=== PATIENT | female | born 1960 | race Caucasian/White ===

== ENCOUNTER 2017-03-25 15:37 | Emergency (ER) | payer OTHER, MEDICARE ==
[~2017-03-25] VITALS: Ht 168.9 cm; Wt 79.1 kg
[~2017-03-25 15:37] MED LIST: ATEN25TA PO; ATOR20TA PO; Aspirin PO; CITA40TA13 PO; CLOP75TA3 PO; GABA-504 PO; HYDR-3481 PO; MTH10T PO; TIZA2TAB3 PO
[2017-03-25 16:16] VITALS: BP 235/115; PULSE 101; RESP 18; O2SAT 97
[2017-03-25 16:30] VITALS: BP 196/93; PULSE 99; RESP 18; O2SAT 97
--- NOTE | 2017-03-25 16:42 | ED.REPORT ---
HPI-Back Pain 40 and Over Date of Service Mar 25, 2017 ED Provider: Hua Moran MD History of Present Illness: left side back pain started at 1 am this morning. Has been having back pain for 2 weeks but worse this am. Sees Yvonne sandoval. was taking vicodin every 3 hours. sent here no nausea or vomiting. denies control pills. Has been waking occasionally with the pain 04/28 Nursing Notes Stated Complaint: BACK PAIN/SENT FROM URGENT CARE Chief Complaint: Back Pain or Injury Nursing Notes Reviewed: Yes Allergies: Coded Allergies: morphine (Verified Allergy, Severe, 01/24/15) IV,ok; oral gives her migraines/nausea clindamycin (Verified Allergy, Intermediate, 01/24/15) itchy red rash Scheduled ([Aspirin]) 81 MG TAB.CHEW 162 MG PO DAILY Atenolol (Atenolol) 25 Mg Tablet 25 MG PO DAILY Atorvastatin (Lipitor) 20 Mg Tablet 40 MG PO HS Citalopram (Citalopram) 40 Mg Tablet 40 MG PO DAILY Clopidogrel Bisulfate (Plavix) 75 Mg Tablet 75 MG PO DAILY Gabapentin (Gabapentin) 400 Mg Capsule 400 MG PO HS Methadone (Methadone) 10 Mg Tab 5 MG PO BID Tizanidine (Tizanidine) 2 Mg Tablet 2 MG PO HS Scheduled PRN Hydrocodone/Acetaminophen (Vicodin Es 7.5-300 mg Tablet) 1 Each Tablet 1 EACH PO Q6 PRN PRN For Pain General Time Seen by MD: 16:28 Chief Complaint Back pain Hx Obtained From: Patient Sudden in Onset?: No Caused by: Spontaneous/no mechanism Past Medical History Past Medical History CVA June 2015 after neck surgery [place] July 2014 Reports: Stroke Past Surgical History Lamenectomy C4-C5 to treat L side numbness Two prior back surgeries Smoking History Current Every Day Smoker (10 cig a day 30 years) Social History Alcohol Use: 3-5 per day Drug Use: Denies drug use Other Social History: 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 Ambulatory Status Independent Review of Systems Basic Review of Systems Eyes: Vision NL, No discharge Hematologic: No bleeding, No bruising Psychiatric: Normal thought content Physical Exam Initial Vital Signs Vital Signs (First) Date Time Temp Pulse Resp B/P Pulse Ox O2 Delivery O2 Flow Rate FiO2 03/25/17 16:16 37.4 101 18 235/115 97 Room Air Initial VS: Reviewed, Vital signs abnormal Head / Eyes: Atraumatic, Normocephalic, PERRL ENT: Mucous membranes moist, Conjunctiva normal, No scleral icterus Neck: Supple, Non-tender, Full range of motion Lymphatic: No lymphadenopathy Extremities: Vascular intact, Neuro intact, No swelling, No tenderness Skin: Warm, Dry, No cyanosis Psychiatric: Mood/affect normal, Behavior normal, Normal thought content General/Constitutional: Awake, Alert Distress / Hydration: Positive: Distress moderate patient is writhing in pain on entrance into the room. has good response to dilaulid Respiratory / Chest: Atraumatic, Breath sounds NL, Breath sounds = bilat, No respiratory distress Cardiovascular: Heart rate NL, Regular rhythm, Heart sounds NL, No gallop, No murmurs Abdomen: Atraumatic, Soft, Non-tender, McBurney's non-tender Flank / Spine / Paraspinal: Positive: Thorac paraspinal tend... (Mid) Neurologic: Oriented X3, Speech NL, No motor deficits Interpretation & Diagnostics Interpretation & Diagnostics: normal EKG normnal chest xray Lab Results Interpretation Result Diagram: 03/25/17 1653 03/25/17 1653 Test 03/25/17 16:53 03/25/17 17:50 03/25/17 18:08 White Blood Count 14.4th/mm3 (3.8-10.1) Red Blood Count 4.27mil/mm3 (3.90-5.20) Hemoglobin 13.7g/dL (12.0-15.6) Hematocrit 40.0% (35.0-46.0) Mean Corpuscular Volume 93.7fL (81-100) Mean Corpuscular Hemoglobin 32.1pg (27.0-35.0) Mean Corpuscular Hemoglobin Concent 34.3% (32.0-37.0) Red Cell Distribution Width 12.5% (12.3-15.4) Platelet Count 261bil/L (150-400) Neutrophils (%) (Auto) 73.9% (40-74) Lymphocytes (%) (Auto) 17.8% (14-46) Monocytes (%) (Auto) 6.3% (4-12) Eosinophils (%) (Auto) 1.3% (0-5) Basophils (%) (Auto) 0.4% (0-3) Sodium Level 140mEq/L (134-144) Potassium Level 4.3mEq/L (3.5-5.2) Chloride Level 97mEq/L (97-108) Carbon Dioxide Level 24mmol/L (18-29) Blood Urea Nitrogen 15mg/dL (6-24) Creatinine 0.65mg/dL (0.57-1.00) Estimat Glomerular Filtration Rate 135mL/min (>59) Glucose Level 103mg/dL (60-99) Calcium Level 10.0mg/dL (8.5-10.1) Magnesium Level 1.9mg/dL (1.6-2.6) Total Bilirubin 0.2mg/dL (0.0-1.2) Aspartate Amino Transf (AST/SGOT) 27U/L (0-50) Alanine Aminotransferase (ALT/SGPT) 25U/L (0-32) Alkaline Phosphatase 98U/L (25-150) Troponin T < 0.010ug/L (0.0-0.011) Total Protein 7.9g/dL (6.4-8.4) Albumin 4.5g/dL (3.4-5.0) Hold Urine Received (Received) Urine Color Yellow (YELLOW) Urine Appearance Clear (CLEAR,HAZY) Urine pH 5.5 (5.0-8.0) Urine Specific Alden 1.015 (1.003-1.035) Urine Protein Negativemg/dL (NEG,TRACE) Urine Glucose (UA) Negativemg/dL (NEGATIVE) Urine Ketones Negativemg/dL (NEGATIVE) Urine Occult Blood Large (NEGATIVE) Urine Nitrite Negative (NEGATIVE) Urine Bilirubin Negative (NEGATIVE) Urine Urobilinogen Normalmg/dL (NORMAL) Urine Leukocyte Esterase Negative (NEGATIVE) Urine RBC 3-10/hpf (0-2) Urine WBC 0-5/hpf (0-5) Urine Epithelial Cells Moderate/hpf (NONE-MOD) Urine Crystals None seen (NONE SEEN) Urine Bacteria Few/hpf (NONE-FEW) Urine Hyaline Casts None/lpf (NONE) Urine Granular Casts None seen (NONE SEEN) Urine Waxy Casts None seen (NONE SEEN) Urine Red Blood Cell Casts None seen (NONE SEEN) Urine White Blood Cell Casts None seen (NONE SEEN) Urine Mucus None seen (None Seen) Urine Trichomonas None seen (NONE SEEN) Urine Yeast None (NONE SEEN) Urinalysis Comment None Urine Culture Reflexed Not indicated X-Ray Chest Interpretation Chest Xray Interpretation: ROCEDURE: CT ANG CHEST/ABD W/WO CONTRAST ([id number]) INDICATIONS: back pain. htn, r/o dissection TECHNIQUE: Precontrast 5 mm thick sections acquired from the lung apices to the iliac crests. After the administration of intravenous contrast, 3 mm thick sections again acquired from the lung apices to the iliac crests. 3-dimensional maximum intensity projection (MIP) oblique sagittal and coronal reformats were then acquired, and/or 3-dimensional volume rendering reformats. For radiation dose reduction, the following was used: automated exposure control. COMPARISON: None. FINDINGS: Image quality: Excellent. AORTA: Radiographically normal thoracic and abdominal aorta. CHEST: Lungs and pleura: There is a very low-density 12 mm area in the superior right upper lobe on (se 6 im 20). Mild emphysema. Mediastinum: Heart size is normal. No pericardial effusion. No mediastinal or hilar adenopathy by size criteria. Central pulmonary arteries are normal in size. Esophagus is normal in caliber. No hiatal hernias. Bones and chest wall: No axillary adenopathy by size criteria. Thyroid gland contains a partially calcified 2 cm right thyroid nodule. No suspicious bony lesions. No vertebral body compression fractures. ABDOMEN: Vasculature: Celiac trunk and mesenteric arteries are patent. Dual bilateral renal arteries are also patent. Solid organs: Liver and spleen are normal in size. Gallbladder is normal. Biliary system is non dilated. Pancreas enhances normally. No adrenal nodules. Both kidneys are normal in size and enhancement, without hydronephrosis. Peritoneum and bowel: No free fluid or air. Bowel loops are normal in caliber and wall thickness. Nodes and vessels: No retroperitoneal or mesenteric adenopathy by size criteria. Inferior vena cava is normal in morphology. Bones: No suspicious bony lesions. No vertebral body compression fractures. Miscellaneous: No ventral hernias. IMPRESSION: 1. Normal thoracic and abdominal aorta. No evidence of dissection. 2. There is a 2 cm right thyroid nodule. Recommend ultrasound on a nonemergent basis. 3. There is a 12 mm very low-density area in the superior upper lobe of the right lung. Recommend followup as described below. Fleischner Society criteria for SUB-SOLID lung nodule followup. Solitary pure ground-glass nodules5 mm or lessNo followup needed. >5 mm3 mo follow-up CT to confirm persistence. Then annual CT for 3 years. Part-solid nodules3 mo follow-up CT to confirm persistence. If persistent with solid component <5 mm, annual CT for at least 3 years. If solid component is 5 mm or more, biopsy or surgical resection. Consider PET-CT for lesions > 10 mm. Multiple sub-solid nodulesPure ground glass nodules [address] at 2 and 4 years. Pure ground glass nodules >5 mm without dominant lesion. [address] to confirm persistence, then annual followup CT for at least 3 years. Dominant nodule(s) with part-solid or solid component. [address] to confirm persistence. If persistent, consider biopsy or surgical resection, kathi if lesions have >5 mm solid component. Dictated by: Nikolas Ricks M.D. on 03/25/2017 at 18:38 Approved by: Nikolas Ricks M.D. on 03/25/2017 at 18:48 Re-Eval/Medical Decision Med Decision/Clinical Course CT does not show any dissection. Patient informed of thyroid nodule and 12 mm low density area in the superior upper lobe of the right lung. Patient with good pain control with dilaulid and tordaol. BP does come down with pain control. No sign of dissection or pneumonia. Discharge & Departure Impression: Primary Impression: Low back pain Chronicity: chronic Back pain laterality: unspecified Sciatica presence: unspecified whether sciatica present Qualified Code: M54.5 - Low back pain Additional Impressions: Temporary high blood pressure Hypertension Hypertension type: unspecified secondary hypertension Qualified Code: I15.9 - Secondary hypertension, unspecified Disposition: Home Patient Instructions: Low Back Strain (ED) Additional Instructions: The CT does not show any sign of dissection. It does show a right thyroid nodule. This will need an ultrasound on an out patient basis. The CT also shows a 12 mm low density area in the upper lobe of the right lobe. Please discuss with Dr. Sandoval the best way to evualate this. You have had a great response to the toradol. You are being provided the pill version, ketorolac 10 mg up to 4 times a day for [address] Sandoval tomorrow. No sign of any heart issues, or pneumonia. Continue with your regular medication. Referrals: Yvonne Sandoval MD (PCP) EDSupervising Provider for APC: Hua Moran MD Attending Statement Attending attestation: I saw this patient in conjunction with Suyapa LIM. I agree with the workup , evaluation, treatment and disposition. Hua Moran MD copies to: Yvonne Sandoval MD, Beck O MD Mar 25, 2017 16:42 Suyapa Pineda Mar 25, 2017 17:19
[2017-03-25 16:56] LABS: BASOPHILS % (AUTO) 0.4 % (0-3); EOSINOPHILS % (AUTO) 1.3 % (0-5); MONOCYTES % (AUTO) 6.3 % (4-12); Mean Corpuscular Hemoglobin 32.1 pg (27.0-35.0); Mean Corpuscular Volume 93.7 fL (81-100); NEUTROPHILS % (AUTO) 73.9 % (40-74); Platelet Count 261 bil/L (150-400)
[2017-03-25 17:20] LABS: TROPONIN T < 0.010 ug/L (0.0-0.011)
[2017-03-25] MEDS ORDERED: Ondansetron 2 mg/mL 2 mL Inj IVPUSH ONE (17:25)
[2017-03-25] MEDS ORDERED: 0.9% Sodium Chloride 1,000 ML IV ONE (17:25)
[2017-03-25 17:30] LABS: Magnesium 1.9 mg/dL (1.6-2.6)
[2017-03-25] MEDS: HYDROmorphone 0.5 mg/0.5 mL iSecure Syringe IVPUSH PRN ×2 (17:47→18:15)
[2017-03-25 18:31] LABS: APPEARANCE,URINE CLEAR (CLEAR,HAZY); COLOR,URINE YELLOW (YELLOW); OCCULT BLOOD,URINE LARGE (NEGATIVE); PH,URINE 5.5 (5.0-8.0); UROBILINOGEN,URINE NORMAL (NORMAL)
--- NOTE | 2017-03-25 18:38 | DRSVH ---
PROCEDURE: X-RAY CHEST ONE VIEW, PORTABLE ([id number]) INDICATIONS: chest pain TECHNIQUE: One view of the chest was acquired. COMPARISON: [facility], CR, CHEST 1VW (PORTABLE), 01/24/2015, 2:53. [facility], CR, CHEST 1VW (PORTABLE), 07/06/2014, 5:24. FINDINGS: Surgical changes and devices: None. Lungs and pleura: No pleural effusions or pneumothorax. Lungs are clear. Mediastinum: Mediastinal contours appear normal. Heart size is normal. Bones and chest wall: No suspicious bony lesions. Overlying soft tissues appear unremarkable. IMPRESSION: No radiographic evidence of acute cardiopulmonary pathology. Dictated by: Nikolas Ricks M.D. on 03/25/2017 at 18:36 Approved by: Nikolas Ricks M.D. on 03/25/2017 at 18:36
--- NOTE | 2017-03-25 18:50 | DRSVH ---
PROCEDURE: CT ANG CHEST/ABD W/WO CONTRAST ([id number]) INDICATIONS: back pain. htn, r/o dissection TECHNIQUE: Precontrast 5 mm thick sections acquired from the lung apices to the iliac crests. After the adminis tration of intravenous contrast, 3 mm thick sections again acquired from the lung apices to the iliac crests. 3-dimensional maximum intensity projection (MIP) oblique sagittal and coronal reformats wer e then acquired, and/or 3-dimensional volume rendering reformats. For radiation dose reduction, the following was used: automated exposure control. COMPARISON: None. FINDINGS: Image quality: Excellent. AORTA: Radiographically normal thoracic and abdominal aorta. CHEST: Lungs and pleura: There is a very low-density 12 mm area in the superior right upper lobe on (se 6 im 20). Mild emphysema. Mediastinum: Heart size is normal. No pericardial effusion. No mediastinal or hilar adenopathy by size criteria. Central pulmonary arteries are normal in size. Esophagus is normal in caliber. No h iatal hernias. Bones and chest wall: No axillary adenopathy by size criteria. Thyroid gland contains a partially c alcified 2 cm right thyroid nodule. No suspicious bony lesions. No vertebral body compression fract ures. ABDOMEN: Vasculature: Celiac trunk and mesenteric arteries are patent. Dual bilateral renal arteries are also patent. Solid organs: Liver and spleen are normal in size. Gallbladder is normal. Biliary system is non di lated. Pancreas enhances normally. No adrenal nodules. Both kidneys are normal in size and enhance ment, without hydronephrosis. Peritoneum and bowel: No free fluid or air. Bowel loops are normal in caliber and wall thickness. Nodes and vessels: No retroperitoneal or mesenteric adenopathy by size criteria. Inferior vena cava is normal in morphology. Bones: No suspicious bony lesions. No vertebral body compression fractures. Miscellaneous: No ventral hernias. IMPRESSION: 1. Normal thoracic and abdominal aorta. No evidence of dissection. 2. There is a 2 cm right thyroid nodule. Recommend ultrasound on a nonemergent basis. 3. There is a 12 mm very low-density area in the superior upper lobe of the right lung. Recommend fol lowup as described below. Fleischner Society criteria for SUB-SOLID lung nodule followup. Solitary pure ground-glass nodules5 mm or lessNo followup needed. >5 mm3 mo follow-up CT to confirm persistence. Then annual CT for 3 years. Part-solid nodules3 mo follow-up CT to confirm persistence . If persistent with solid component <5 mm, annual CT for at least 3 years. If solid component is 5 mm or more, biopsy or surgical resection. Consider PET-CT for lesions > 10 mm. Multiple sub-solid nodulesPure ground glass nodules [address] at 2 and 4 years. Pure ground glass nodules >5 mm without dominant lesion. [address] to confirm persistence, then annual followup CT for at least 3 years. Dominant nodule(s) with part-solid or solid component. [address] to confirm persistence. If persistent, consider biopsy or surgical resection, kathi if lesions have >5 m m solid component. Dictated by: Nikolas Ricks M.D. on 03/25/2017 at 18:38 Approved by: Nikolas Ricks M.D. on 03/25/2017 at 18:48
[2017-03-25 21:16] VITALS: BP 158/74; PULSE 88; RESP 16; O2SAT 98
== END 2017-03-25 20:41 | disposition home or self-care (01) ==
LOC: SED 15:37
DX: M54.5 Low back pain (principal); I10 Essential (primary) hypertension; F17.200 Nicotine dependence, unspecified, uncomplicated; I25.2 Old myocardial infarction; Z86.73 Personal history of transient ischemic attack (TIA), and cerebral infarction without residual deficits; Z79.82 Long term (current) use of aspirin; Z88.1 Allergy status to other antibiotic agents; Z88.5 Allergy status to narcotic agent
CPT/HCPCS: 36415; 71010; 71275; 74175; 80053; 81000; 83735; 84484; 85025; 93005; 96361; 96374; 96375; 99285; J1170; J1885; J7030; Q9967